=== PATIENT | female | born 1940 | race Caucasian/White ===

== ENCOUNTER 2018-03-11 18:33 | Emergency (ER) | payer MEDICARE, BC, SELFPAY ==
[2018-03-11 18:49] VITALS: BP 159/114; PULSE 65; RESP 20; TEMP 36.1; O2SAT 95; BMI 25.4
--- NOTE | 2018-03-11 18:50 | ED.SYNCOPE ---
HPI - Syncope General Chief Complaint: Syncope Stated Complaint: having blackouts, passing out Time Seen by Provider: 03/11/18 18:50 Source: patient Mode of arrival: ambulatory Limitations: no limitations History of Present Illness HPI narrative: The patient has experienced 2 episodes of syncope while at rest at home today. The 1st episode was at noon, and a repeat episode occurred prior to arrival. She has had approximately 10 episodes of syncope in the past month. Her describes situations where she does collapse a pass out for 2-3 seconds, she also has experienced episodes where she riley out . She almost passes out goes to the floor and recovers. She has no associated chest pain. She has no confusion or neurologic deficit. She has not experienced palpitations. She underwent CABG 1 year ago while in [place]. The family travels back and forth between this area and there is on a. She has never had arrhythmia, she has never experienced syncope before the past month. She was seen by local doctor did an EKG, the results are unknown. There been attempts to arrange a cardiology appointment. At the cardiology appointment is still weeks away. She feels well currently, she does not feel weakness or dizziness. She is ambulatory without assistance. She is taking oxycodone for rather severe back pain. Her last dose was 4 hr ago. She does not feel she is having adverse effect with the oxycodone. Related Data Home Medications Medication Instructions Recorded Confirmed albuterol sulfate 2.5 mg INHALATION Q4H PRN 03/11/18 03/11/18 aspirin 81 mg PO DAILY 03/11/18 03/11/18 carvedilol 6.25 mg PO BID 03/11/18 03/11/18 cetirizine [Zyrtec] 10 mg PO DAILY 03/11/18 03/11/18 citalopram 40 mg PO DAILY 03/11/18 03/11/18 fluticasone [Flonase Allergy 2 spray INTRANASAL DAILY 03/11/18 03/11/18 Relief] hydrochlorothiazide 12.5 mg PO DAILY 03/11/18 03/11/18 rosuvastatin 20 mg PO DAILY 03/11/18 03/11/18 thyroid (pork) [GROUND SUPPORT EQUIPMENT FITTER Thyroid] 90 mg PO DAILY 03/11/18 03/11/18 Allergies Allergy/AdvReac Type Severity Reaction Status Date / Time Sulfa (Sulfonamide Allergy Verified 03/11/18 18:56 Antibiotics) Review of Systems Review of Systems ROS Unobtainable: All systems reviewed & are unremarkable except as noted in HPI and below Constitutional Denies chills, Denies fever(s), Denies headache(s), Denies lethargy and Denies weakness Eyes Denies change in vision, Denies eye discharge, Denies irritation and Denies loss of vision ENT Ears, Nose, Mouth, and Throat: Denies headache(s), Denies hearing loss, Denies neck pain, Denies disequilibrium and Denies sinus pain Cardiovascular Denies chest pain, Denies irregular heart rhythm, Denies lightheadedness, Denies palpitations, Denies dyspnea, Denies dyspnea on exertion and Denies orthopnea Respiratory Denies cough, Denies dyspnea, Denies dyspnea on exertion and Denies wheezing Gastrointestinal Gastrointestinal: Denies abdominal pain, Denies change in bowel habits, Denies diarrhea, Denies nausea and Denies vomiting Musculoskeletal Denies neck pain Integumentary/Breasts Denies pruritus, Denies erythema, Denies rash and Denies wounds Neurologic Denies confusion, Denies headache(s), Denies loss of vision, Denies disequilibrium and Denies weakness Psychiatric Denies anxiety, Denies confusion, Denies depression, Denies homicidal ideation and Denies suicidal ideation Endocrine Denies palpitations Allergic/Immunologic Denies wheezing PFSH Medical History Back pain (Acute) CAD, multiple vessel (Acute) Surgical History Hx of CABG (Acute) Social History additional social history: No significant social history. She and her spend half the year locally, and half the year in [place]. Exam Initial Vital Signs Initial Vital Signs: Vital Signs Temperature 97 F L 03/11/18 18:49 Pulse Rate 65 03/11/18 18:49 Respiratory Rate 20 03/11/18 18:49 Blood Pressure 159/114 H 03/11/18 18:49 Pulse Oximetry 95 03/11/18 18:49 Const General: cooperative and well developed Nutritional Appearance: well nourished Orientation: alert, awake, oriented x3 and not confused [facility] Head: normocephalic and atraumatic Ears: external ears normal and TM's normal bilaterally Nose: external nose normal and No nasal discharge Face and sinus: sinuses nontender, face symmetric, no sinus tenderness and No dry mucous membranes Mouth: oral mucosae normal and moist mucous membranes Teeth and gingiva: dentition normal Throat: tonsils normal and uvula midline Eyes General: appearance normal, both eyes and all related structures Eyelids: eyelids normal Conjunctivae: conjunctivae normal Sclera: sclerae normal Pupils: PERRL EOM: EOM intact bilaterally Neck Neck: No JVD Chest Chest: normal inspection of the chest Resp Effort & Inspection: normal respiratory effort, able to speak in complete sentences, no respiratory distress and no use of accessory muscles Auscultation: clear to auscultation bilaterally, no rales, no rhonchi and no wheezes Cardio Rate: regular rate Rhythm: regular rhythm Heart Sounds: no click, no gallops, no murmurs and no rubs Pulses: normal peripheral pulses GI Inspection: non-distended Palpation: soft, no hepatosplenomegaly, No guarding, No pulsatile mass and No tender Auscultation: normal bowel sounds Back/Spine/Pelvis Back: back tenderness (Moderate in the lumbar spine.) Skin General: no rashes or lesions noted, No jaundice and No petechiae Neuro General: alert, oriented x3, gait normal and no focal motor deficits Speech: speech normal Extrem General: no pedal edema Psych Appearance: well kempt Mental Status: mental status grossly normal Attitude: cooperative Thought Content: normal and suicidality Judgment: judgment good Course Orders Ordered: ED Orders 03/11/18 18:47 EKG-12 Lead Stat 03/11/18 18:58 XR chest 1V Stat 03/11/18 19:05 Complete Blood Count AUTO DIFF Stat Comprehensive Metabolic Panel Stat Magnesium Stat Prothrombin Time INR Stat Troponin & CK Cardiac Panel Stat Discontinued Medications Morphine Sulfate (Morphine) 4 mg SUBCUT NOW ONE Stop: 03/11/18 20:27 Last Admin: 03/11/18 20:38 Dose: 4 mg Potassium Chloride (Potassium Chloride) 40 meq PO NOW ONE Stop: 03/11/18 20:09 Last Admin: 03/11/18 20:15 Dose: 40 meq Vital Signs - 8 hr 03/11/18 18:49 03/11/18 20:00 03/11/18 20:47 Temperature 97 F L 98.1 F Pulse Rate 65 65 62 Respiratory Rate 20 18 20 Blood Pressure 159/114 H Blood Pressure [Left Arm] 181/73 H 196/67 H Pulse Oximetry 95 99 100 03/11/18 21:26 Temperature Pulse Rate 66 Respiratory Rate 20 Blood Pressure 170/74 H Blood Pressure [Left Arm] Pulse Oximetry 99 MDM - Syncope Lab Data Result diagrams: 03/11/18 19:05 03/11/18 19:05 Lab Results 03/11/18 03/11/18 03/11/18 Range/Units 19:05 19:05 19:05 WBC 6.5 (4.5-11.0) X10^3/uL RBC 4.08 (4.0-5.2) X10^6/uL Hgb 13.2 (12.0-16.0) g/dL Hct 39.0 (36-46) % MCV 95.5 (80-100) fL MCH 32.2 (26-34) PG MCHC 33.7 (30-36) % RDW 13.1 (11.6-14.8) % Plt Count 247 (150-400) X10^3/uL Neut % (Auto) 65.7 (50-75) % Lymph % (Auto) 18.4 L (25-40) % Morgan % (Auto) 11.6 (3-14) % Eos % (Auto) 3.5 (2-4) % Baso % (Auto) 0.8 (0-2) % Neut # (Auto) 4300 (5414-7760) /uL Lymph # (Auto) 1200 (2941-8648) /uL Morgan # (Auto) 800 (0-900) /uL Eos # (Auto) 200 (0-450) /uL Baso # (Auto) 100 (0-100) /uL PT 11.1 (10.1-12.7) SECONDS INR 1.0 (0.9-1.3) Sodium 136 L (137-145) mmol/L Potassium 3.0 L (3.4-5.1) mmol/L Chloride 98 (98-107) mmol/L Carbon Dioxide 27 (22-32) mmol/L BUN 13 (7-17) mg/dL Creatinine 0.60 (0.52-1.04) mg/dL Estimated GFR > 60.0 (>60) mL/min BUN/Creatinine Ratio 21.7 (6-22) Glucose 97 (80-110) mg/dL Calcium 9.6 (8.4-10.2) mg/dL Magnesium 2.2 (1.6-2.3) mg/dL Total Bilirubin 0.3 (0.2-1.3) mg/dL AST 28 (14-36) IU/L ALT 28 (9-52) IU/L Alkaline Phosphatase 112 (38-126) U/L Total Creatine Kinase 64 (30-135) U/L CK-MB (CK-2) TNP CK-MB (CK-2) Rel Index TNP Troponin I < 0.012 (0.01-0.034) ng/mL Total Protein 8.0 (6.3-8.2) g/dL Albumin 4.6 (3.5-5.0) g/dL Globulin 3.4 (1.7-4.1) g/dL Albumin/Globulin Ratio 1.4 (1.0-2.8) Point of Care Testing Glucose POC 104 Imaging Data Chest x-ray: Radiologist's impression: [place] [address] XRay Report Signed Patient: Ottoniel Couch MMR#: [id number] : 3Acct:[id number] Age/Sex: 77 / FDate of Service: 03/11/18 Loc: ED Accession Number: [id number] Procedure: XR chest 1V Ordering Provider: Tello Sandoval M.D. PROCEDURE: XR CHEST 1V INDICATIONS: Recurrent syncope TECHNIQUE: One view of the chest was acquired. COMPARISON: None. FINDINGS: Surgical changes and devices: Sternotomy and CABG. Lungs and pleura: Lungs are clear. No pleural effusions or pneumothorax. Mediastinum: Mediastinal contours appear normal. Heart size is normal. Bones and chest wall: No suspicious bony lesions. Overlying soft tissues appear unremarkable. IMPRESSION: No acute cardiopulmonary disease. Dictated by: German Guevara M.D. on 03/11/2018 at 19:46 Approved by: German Guevara M.D. on 03/11/2018 at 19:51 ECG Data Attestation: I personally reviewed and interpreted this ECG as follows: (Normal sinus rhythm rate 61 bpm. RBBB. Old inferior Q-waves. No acute ST T wave elevation. No acute findings.) MDM Narrative Medical decision making narrative: The patient has not felt near syncope or syncope episodes since arrival to the ER. Monitor reveals no evidence of arrhythmia. She does have a potassium level 3.0 which has been treated, magnesium level is normal. I discussed the case with Dr. Garcia with [facility]. We have made arrangements for her to be seen by one of the nurses in that group with the plan to have a 30 day monitor started tomorrow. The follow-up plan is described in her discharge instructions. She is requested to return here if symptoms escalate. Discharge Plan Departure Patient Disposition: Home Clinical Impression: Syncope Discharge Date/Time: 03/11/18 21:27 Interventions: ED Discharge Assessment Last Done: 03/11/18 21:26 Instructions: DI for Syncope in Adults (Fainting) Activity Restrictions/Additional Instructions: Contact [facility] after 8:00 a.m. tomorrow morning, . Ask to speak with Lesli locally here in [place] at their cardiology office. I talked with 1 of their supervisor engine assembly, Dr. Garcia. The plan would be to have Lesli place you on a 30 day cardiology monitor. If you have repeat cases of passing out prior to the cardiology workup return to the ER. Prescriptions: No Action carvedilol 6.25 mg Tablet 6.25 mg PO BID RF: 0 citalopram 40 mg Tablet 40 mg PO DAILY RF: 0 cetirizine [Zyrtec] 10 mg Tablet 10 mg PO DAILY RF: 0 aspirin 81 mg Tablet,Chewable 81 mg PO DAILY RF: 0 hydrochlorothiazide 25 mg Tablet 12.5 mg PO DAILY RF: 0 albuterol sulfate 5 mg/mL Solution For Nebulization 2.5 mg INHALATION Q4H PRN (Reason: Dyspnea) RF: 0 fluticasone [Flonase Allergy Relief] 50 mcg/actuation [place],Suspension 2 spray INTRANASAL DAILY RF: 0 rosuvastatin 20 mg Tablet 20 mg PO DAILY RF: 0 thyroid (pork) [GROUND SUPPORT EQUIPMENT FITTER Thyroid] 90 mg Tablet 90 mg PO DAILY RF: 0 Referrals: Felix Garcia MD [Non-Staff] -
--- NOTE | 2018-03-11 18:58 | DI.RAD.S_ITS ---
PROCEDURE: XR CHEST 1V INDICATIONS: Recurrent syncope TECHNIQUE: One view of the chest was acquired. COMPARISON: None. FINDINGS: Surgical changes and devices: Sternotomy and CABG. Lungs and pleura: Lungs are clear. No pleural effusions or pneumothorax. Mediastinum: Mediastinal contours appear normal. Heart size is normal. Bones and chest wall: No suspicious bony lesions. Overlying soft tissues appear unremarkable. IMPRESSION: No acute cardiopulmonary disease. Dictated by: German Guevara M.D. on 03/11/2018 at 19:46 Approved by: German Guevara M.D. on 03/11/2018 at 19:51
--- NOTE | 2018-03-11 19:14 | PC.NURSE ---
pt reports, multiple episode of yeager out recent today at 4pm, loc for couple of seconds. then pt reports having back spasm.
[2018-03-11 19:16] LABS: Add Manual Diff / Slide Review NO; Basophils Absolute Auto 100 /uL (0-100); Basophils Percent Auto 0.8 % (0-2); Eosinophils Absolute Auto 200 /uL (0-450); Eosinophils Percent Auto 3.5 % (2-4); Hemoglobin 13.2 g/dL (12.0-16.0); Lymphocytes Absolute Auto 1200 /uL (1100-4500); Lymphocytes Percent Auto 18.4 % (25-40); Mean Corpuscular HGB Conc 33.7 % (30-36); Mean Corpuscular Hemoglobin 32.2 PG (26-34); Mean Corpuscular Volume 95.5 fL (80-100); Monocytes Absolute Auto 800 /uL (0-900); Monocytes Percent Auto 11.6 % (3-14); Neutrophils Absolute Auto 4300 /uL (1500-7000); Neutrophils Percent Auto 65.7 % (50-75); Platelet Count 247 X10^3/uL (150-400); Red Blood Cell Count 4.08 X10^6/uL (4.0-5.2); Red Cell Distribution Width 13.1 % (11.6-14.8); White Blood Cell Count 6.5 X10^3/uL (4.5-11.0)
[2018-03-11 19:23] LABS: Prothrombin Time 11.1 SECONDS (10.1-12.7)
[2018-03-11 19:28] LABS: Alanine Aminotransferase 28 IU/L (9-52); Albumin 4.6 g/dL (3.5-5.0); Albumin Globulin Ratio 1.4 (1.0-2.8); Alkaline Phosphatase 112 U/L (38-126); Aspartate Aminotransferase 28 IU/L (14-36); BUN Creatinine Ratio 21.7 (6-22); Bilirubin Total 0.3 mg/dL (0.2-1.3); Blood Urea Nitrogen 13 mg/dL (7-17); Calcium 9.6 mg/dL (8.4-10.2); Carbon Dioxide 27 mmol/L (22-32); Chloride 98 mmol/L (98-107); Creatine Kinase 64 U/L (30-135); Estimated Glomerular Filt Rate > 60.0 mL/min (>60); Globulin 3.4 g/dL (1.7-4.1); Glucose 97 mg/dL (80-110); HEMOLYSIS < 15 (0-50); Magnesium 2.2 mg/dL (1.6-2.3); Sodium 136 mmol/L (137-145)
[2018-03-11 19:42] LABS: Troponin I < 0.012 ng/mL (0.01-0.034)
[2018-03-11 20:00] VITALS: BP 181/73; PULSE 65; RESP 18; O2SAT 99
[2018-03-11] MEDS: POTASSIUM CHLORIDE 20 MEQ/15 ML UDC 40 MEQ PO (20:15)
[2018-03-11] MEDS: MORPHINE 4 MG/ML INJ SUBCUT (20:38)
[2018-03-11 20:47] VITALS: BP 196/67; PULSE 62; RESP 20; TEMP 36.7; O2SAT 100
[2018-03-11 21:26] VITALS: BP 170/74; PULSE 66; RESP 20; O2SAT 99
== END 2018-03-11 21:27 | disposition home or self-care (01) ==
PROVIDERS: Emergency Provider Emergency Medicine
DX: R55 Syncope and collapse (principal)
CPT/HCPCS: 36591; 71045; 80053; 82550; 82962; 83735; 84484; 85025; 85610; 93005; 96372; 99283; 99285; J2270

== ENCOUNTER 2018-07-03 17:06 | Emergency (ER) | payer MEDICARE, BC, SELFPAY ==
[2018-07-03 17:08] VITALS: BP 129/74; PULSE 83; RESP 16; TEMP 36.8; O2SAT 98
--- NOTE | 2018-07-03 17:52 | DI.RAD.S_ITS ---
PROCEDURE: XR CHEST 1V INDICATIONS: chest pain TECHNIQUE: One view of the chest was acquired. COMPARISON: [facility], CR, XR CHEST 1V, 03/11/2018, 19:02. FINDINGS: Surgical changes and devices: The postoperative changes including sternotomy wires are stable over time Lungs and pleura: Lungs are clear. No pleural effusions or pneumothorax. Mediastinum: Mediastinal contours appear normal. Heart size is normal. Bones and chest wall: No suspicious bony lesions. Overlying soft tissues appear unremarkable. IMPRESSION: Stable postsurgical changes, no source of new chest pain is found. Dictated by: Remington Angelo M.D. on 07/03/2018 at 18:42 Approved by: Remington Angelo M.D. on 07/03/2018 at 18:42
--- NOTE | 2018-07-03 17:57 | PC.NURSE ---
pt reporting light headness for one week worsen with exertion. has been wearing cardiac rehab nurse, has appt with copper miner tomorrow, but pt with near syncope today, reports she was pale, no diaphoresis or vomiting, denies chest pain. checked bp 100's, unable to check heart rate. family at bs.
[2018-07-03 18:07] LABS: INR 0.9 (0.9-1.3); Prothrombin Time 10.6 SECONDS (10.1-12.7)
[2018-07-03 18:09] LABS: PTT Partial Thromboplastin Tim 33 SECONDS (26.4-36.2)
[2018-07-03 18:11] LABS: Alanine Aminotransferase 26 IU/L (9-52); Albumin 4.9 g/dL (3.5-5.0); Albumin Globulin Ratio 1.5 (1.0-2.8); Alkaline Phosphatase 106 U/L (38-126); Aspartate Aminotransferase 37 IU/L (14-36); BUN Creatinine Ratio 18.6 (6-22); Bilirubin Total 0.5 mg/dL (0.2-1.3); Blood Urea Nitrogen 13 mg/dL (7-17); Calcium 9.9 mg/dL (8.4-10.2); Carbon Dioxide 21 mmol/L (22-32); Chloride 102 mmol/L (98-107); Creatine Kinase 51 U/L (30-135); Estimated Glomerular Filt Rate > 60.0 mL/min (>60); Globulin 3.2 g/dL (1.7-4.1); Glucose 83 mg/dL (80-110); HEMOLYSIS 31 (0-50); Lipase 193 U/L (23-300); Sodium 136 mmol/L (137-145); Total Protein 8.1 g/dL (6.3-8.2)
--- NOTE | 2018-07-03 18:12 | ED_ITS ---
HPI - Syncope General Chief Complaint: Syncope Stated Complaint: LIGHTHEADDED Time Seen by Provider: 07/03/18 18:12 Source: patient Mode of arrival: ambulatory Limitations: no limitations History of Present Illness HPI narrative: 78-year-old female here for evaluation of an episode where she was sitting at her desk at home today. She states that she suddenly had an episode where she got tunnel vision almost passed out. She states she did not pass out however. No other associated symptoms to include headache or ringing in her ears or chest pain or shortness of breath or palpitations. She states that she has had episodes like this off and on for some time now. She stated that she recently just finished a 30 day Holter monitor and has an appointment tomorrow with the ?pacemaker ?button facing machine operator. Denies any fevers. The time my evaluation patient had no symptoms. No recent change in her medications. Related Data Home Medications Medication Instructions Recorded Confirmed albuterol sulfate 1 puff INHALATION Q4H PRN 03/11/18 07/03/18 aspirin 81 mg PO DAILY 03/11/18 07/03/18 cetirizine [Zyrtec] 10 mg PO QPM 03/11/18 07/03/18 citalopram 60 mg PO DAILY 03/11/18 07/03/18 fluticasone propionate [Flonase 2 spray INTRANASAL DAILY 03/11/18 07/03/18 Allergy Relief] rosuvastatin 20 mg PO DAILY 03/11/18 07/03/18 thyroid (pork) [FREIGHT HUSTLER Thyroid] 90 mg PO DAILY 03/11/18 07/03/18 Probiotic 1 cap PO DAILY 07/03/18 07/03/18 amlodipine 10 mg PO DAILY 07/03/18 07/03/18 ascorbic acid (vitamin C) 1,000 mg PO DAILY 07/03/18 07/03/18 calcium polycarbophil [Fiber-Tabs] 1,250 mg PO DAILY 07/03/18 07/03/18 cholecalciferol (vitamin D3) 5,000 unit PO DAILY 07/03/18 07/03/18 [Vitamin D3] coenzyme Q10 [Co Q-10] 100 mg PO DAILY 07/03/18 07/03/18 ferrous sulfate 325 mg PO DAILY 07/03/18 07/03/18 lisinopril 10 mg PO BID 07/03/18 07/03/18 magnesium citrate 300 mg PO DAILY 07/03/18 07/03/18 multivitamin 1 tab PO DAILY 07/03/18 07/03/18 potassium chloride 20 meq PO DAILY 07/03/18 07/03/18 vitamin K2 100 mcg PO DAILY 07/03/18 07/03/18 Allergies Allergy/AdvReac Type Severity Reaction Status Date / Time Sulfa (Sulfonamide Allergy Verified 03/11/18 18:56 Antibiotics) Review of Systems Constitutional Denies chills, Denies fever(s), Denies frequent falls, Denies headache(s), Denies lethargy and Denies weakness Eyes Reports loss of vision ENT Ears, Nose, Mouth, and Throat: Denies vertigo, Reports dizziness, Denies headache(s) and Reports disequilibrium Cardiovascular Denies chest pain, Denies diaphoresis, Denies syncope, Denies rapid heart rate, Denies pedal edema, Denies edema, Denies irregular heart rhythm, Reports lightheadedness, Denies radiating jaw, neck or arm pain, Denies palpitations, Reports dyspnea and Denies slow heart rate Respiratory Denies cough, Reports dyspnea and Denies wheezing Gastrointestinal Gastrointestinal: Denies abdominal pain, Denies nausea and Denies vomiting Genitourinary Denies dysuria Musculoskeletal Denies abnormal gait, Denies myalgias, Denies arthralgias, Denies numbness and Denies tingling Integumentary/Breasts Denies rash Neurologic Denies abnormal speech, Denies abnormal gait, Denies behavioral changes, Denies confusion, Denies vertigo, Reports dizziness, Denies syncope, Denies frequent falls, Denies headache(s), Denies lack of coordination, Denies focal weakness, Reports loss of vision, Denies memory loss, Denies numbness, Denies seizure-like activity, Denies tingling, Denies paresthesias, Reports disequilibrium and Denies weakness Psychiatric Denies behavioral changes, Denies confusion and Denies memory loss Endocrine Denies palpitations Hematologic/Lymphatic Denies easy bleeding and Denies easy bruising Allergic/Immunologic Denies wheezing [facility] Medical History Back pain (Acute) CAD, multiple vessel (Acute) Surgical History (Updated 03/11/18 @ 19:39 by Tello Sandoval MD) Hx of CABG (Acute) Social History Smoking Status: Former smoker additional social history: No significant social history. She and her spend half the year locally, and half the year in [place]. Social History Smoking Status: Former smoker additional social history: No significant social history. She and her spend half the year locally, and half the year in [place]. Exam Initial Vital Signs Initial Vital Signs: Vital Signs Temperature 98.3 F 07/03/18 17:08 Pulse Rate 83 07/03/18 17:08 Respiratory Rate 16 07/03/18 17:08 Blood Pressure 129/74 07/03/18 17:08 Pulse Oximetry 98 07/03/18 17:08 Const General: cooperative, comfortable, well developed, well groomed and No acute distress Orientation: alert, awake and oriented x3 HENMT Head: normal to inspection and normocephalic Resp Effort & Inspection: normal respiratory effort Auscultation: clear to auscultation bilaterally Cardio Rate: regular rate Rhythm: regular rhythm Pulses: radial pulses present GI Inspection: non-distended Palpation: soft, No firm and No tender Skin Lesions: no lesions Rashes: no rashes Neuro General: alert and awake Cognition: normal cognition Speech: speech normal Motor: muscle tone normal throughout Sensory Exam: no sensory deficits noted Extrem General: normal to inspection and capillary refill normal Psych Appearance: grossly normal and well kempt Scores GCS Bridget coma scale eye opening: Spontaneous Bridget coma scale verbal response: Orientated Bridget coma scale motor response: Obey commands Bridget coma scale total score: 15 Course Orders Ordered: ED Orders 07/03/18 17:17 EKG-12 Lead Stat 07/03/18 17:52 XR chest 1V Stat 07/03/18 18:02 Complete Blood Count AUTO DIFF Stat Comprehensive Metabolic Panel Stat Lipase Stat Partial Thromboplastin Time Stat Prothrombin Time INR Stat Troponin & CK Cardiac Panel Stat Vital Signs - 8 hr 07/03/18 17:08 07/03/18 18:32 07/03/18 19:00 Temperature 98.3 F Pulse Rate 83 80 78 Respiratory Rate 16 15 20 Blood Pressure 129/74 Blood Pressure [Left Arm] 128/58 L 120/52 L Pulse Oximetry 98 98 99 MDM - Syncope Lab Data Attestation: I reviewed the patient's lab results. Result diagrams: 07/03/18 18:02 07/03/18 18:02 Lab Results 07/03/18 07/03/18 07/03/18 Range/Units 18:02 18:02 18:02 WBC 6.1 (4.5-11.0) X10^3/uL RBC 4.26 (4.0-5.2) X10^6/uL Hgb 13.9 (12.0-16.0) g/dL Hct 41.7 (36-46) % MCV 97.8 (80-100) fL MCH 32.5 (26-34) PG MCHC 33.2 (30-36) % RDW 13.1 (11.6-14.8) % Plt Count 237 (150-400) X10^3/uL Neut % (Auto) 64.2 (50-75) % Lymph % (Auto) 25.0 (25-40) % [place] % (Auto) 7.9 (3-14) % Eos % (Auto) 1.7 L (2-4) % Baso % (Auto) 1.2 (0-2) % Neut # (Auto) 3900 (7779-9433) /uL Lymph # (Auto) 1500 (6885-1671) /uL [place] # (Auto) 500 (0-900) /uL Eos # (Auto) 100 (0-450) /uL Baso # (Auto) 100 (0-100) /uL PT 10.6 (10.1-12.7) SECONDS INR 0.9 (0.9-1.3) APTT 33 (26.4-36.2) SECONDS Sodium 136 L (137-145) mmol/L Potassium 4.0 (3.4-5.1) mmol/L Chloride 102 (98-107) mmol/L Carbon Dioxide 21 L (22-32) mmol/L BUN 13 (7-17) mg/dL Creatinine 0.70 (0.52-1.04) mg/dL Estimated GFR > 60.0 (>60) mL/min BUN/Creatinine Ratio 18.6 (6-22) Glucose 83 (80-110) mg/dL Calcium 9.9 (8.4-10.2) mg/dL Total Bilirubin 0.5 (0.2-1.3) mg/dL AST 37 H (14-36) IU/L ALT 26 (9-52) IU/L Alkaline Phosphatase 106 (38-126) U/L Total Creatine Kinase 51 (30-135) U/L CK-MB (CK-2) TNP CK-MB (CK-2) Rel Index TNP Troponin I < 0.012 (0.01-0.034) ng/mL Total Protein 8.1 (6.3-8.2) g/dL Albumin 4.9 (3.5-5.0) g/dL Globulin 3.2 (1.7-4.1) g/dL Albumin/Globulin Ratio 1.5 (1.0-2.8) Lipase 193 (23-300) U/L Imaging Data Chest x-ray: Radiologist's impression: [address] [address] XRay Report Signed Patient: Ottoniel Couch MMR#: [id number] : 3Acct:[id number] Age/Sex: 78 / FDate of Service: 07/03/18 Loc: ED Accession Number: [id number] Procedure: XR chest 1V Ordering Provider: Moses Zhou D.O. PROCEDURE: XR CHEST 1V INDICATIONS: chest pain TECHNIQUE: One view of the chest was acquired. COMPARISON: [facility], , XR CHEST 1V, 03/11/2018, 19:02. FINDINGS: Surgical changes and devices: The postoperative changes including sternotomy wires are stable over time Lungs and pleura: Lungs are clear. No pleural effusions or pneumothorax. Mediastinum: Mediastinal contours appear normal. Heart size is normal. Bones and chest wall: No suspicious bony lesions. Overlying soft tissues appear unremarkable. IMPRESSION: Stable postsurgical changes, no source of new chest pain is found. Dictated by: Remington Angelo M.D. on 07/03/2018 at 18:42 Approved by: Remington Angelo M.D. on 07/03/2018 at 18:42 ECG Data Attestation: I personally reviewed and interpreted this ECG as follows: Prior ECG tracings: not available for review Interpretation: Sinus rhythm Ventricular rate is 78 Left axis deviation QRS 161 milliseconds Normal IN interval Normal QTC MDM Narrative Medical decision making narrative: Patient is asymptomatic upon arrival today. She states she does not know the results of the 30 day Holter monitor that she finished however she does state that she has an appointment tomorrow with the ?pacemaker ?button facing machine operator. She is unsure if this is because her button facing machine operator who ordered the Holter monitor thinks she needs a pacemaker not. I have low suspicion for TIA or CVA given her symptoms. I do suspect that her symptoms are cardiac related. She does have a fit bit on and review of the heart rate shows rates between 60 and 120. She does not know what her heart rate was at the time when she had the symptoms. Blood pressure is unremarkable. Will hold on further workup for now. Will have the patient follow up with her button facing machine operator tomorrow as scheduled. She was given return precautions. Her family is at bedside for these discussions. They all expressed understanding and agreement plan. Discharge Plan Departure Patient Disposition: Home Clinical Impression: Pre-syncope Discharge Date/Time: 07/03/18 19:35 Interventions: ED Discharge Assessment Last Done: 07/03/18 19:35 Instructions: DI for Syncope in Adults (Fainting) Activity Restrictions/Additional Instructions: I recommend that you keep your appointment with the heart doctor tomorrow. Continue all of your medications as directed. Return to the emergency departme for any new or worsening symptoms. No driving until cleared by your primary or by Cardiology Prescriptions: No Action citalopram 40 mg Tablet 60 mg PO DAILY RF: 0 cetirizine [Zyrtec] 10 mg Tablet 10 mg PO QPM RF: 0 aspirin 81 mg Tablet,Chewable 81 mg PO DAILY RF: 0 albuterol sulfate 5 mg/mL Solution For Nebulization 1 puff INHALATION Q4H PRN (Reason: Dyspnea) RF: 0 fluticasone propionate [Flonase Allergy Relief] 50 mcg/actuation [place],Suspension 2 spray INTRANASAL DAILY RF: 0 rosuvastatin 20 mg Tablet 20 mg PO DAILY RF: 0 thyroid (pork) [FREIGHT HUSTLER Thyroid] 90 mg Tablet 90 mg PO DAILY RF: 0 amlodipine 5 mg tablet 10 mg PO DAILY RF: 0 lisinopril 10 mg tablet 10 mg PO BID RF: 0 potassium chloride 20 mEq Tablet Extended Release 20 meq PO DAILY RF: 0 multivitamin Tablet 1 tab PO DAILY RF: 0 ascorbic acid (vitamin C) 1,000 mg Tablet 1,000 mg PO DAILY RF: 0 ferrous sulfate 325 mg (65 mg iron) Tablet 325 mg PO DAILY RF: 0 calcium polycarbophil [Fiber-Tabs] 625 mg Tablet 1,250 mg PO DAILY RF: 0 coenzyme Q10 [Co Q-10] 100 mg Capsule 100 mg PO DAILY RF: 0 cholecalciferol (vitamin D3) [Vitamin D3] 5,000 unit Tablet 5,000 unit PO DAILY RF: 0 Probiotic 1 cap PO DAILY RF: 0 magnesium citrate 300 mg 300 mg PO DAILY RF: 0 vitamin K2 100 mcg tablet 100 mcg PO DAILY RF: 0
[2018-07-03 18:13] LABS: Add Manual Diff / Slide Review NO; Basophils Absolute Auto 100 /uL (0-100); Basophils Percent Auto 1.2 % (0-2); Eosinophils Absolute Auto 100 /uL (0-450); Eosinophils Percent Auto 1.7 % (2-4); Hematocrit 41.7 % (36-46); Hemoglobin 13.9 g/dL (12.0-16.0); Lymphocytes Absolute Auto 1500 /uL (1100-4500); Mean Corpuscular HGB Conc 33.2 % (30-36); Mean Corpuscular Hemoglobin 32.5 PG (26-34); Mean Corpuscular Volume 97.8 fL (80-100); Monocytes Absolute Auto 500 /uL (0-900); Monocytes Percent Auto 7.9 % (3-14); Neutrophils Absolute Auto 3900 /uL (1500-7000); Neutrophils Percent Auto 64.2 % (50-75); Platelet Count 237 X10^3/uL (150-400); Red Blood Cell Count 4.26 X10^6/uL (4.0-5.2); Red Cell Distribution Width 13.1 % (11.6-14.8); White Blood Cell Count 6.1 X10^3/uL (4.5-11.0)
[2018-07-03 18:22] LABS: Troponin I < 0.012 ng/mL (0.01-0.034)
[2018-07-03 18:32] VITALS: BP 128/58; PULSE 80; RESP 15; O2SAT 98
[2018-07-03 19:00] VITALS: BP 120/52; PULSE 78; RESP 20; O2SAT 99
== END 2018-07-03 19:35 | disposition home or self-care (01) ==
PROVIDERS: Emergency Provider Emergency Medicine
DX: R55 Syncope and collapse (principal); R06.02 Shortness of breath
CPT/HCPCS: 36591; 71045; 80053; 82550; 83690; 84484; 85025; 85610; 85730; 93005; 93010; 99283; 99285

== ENCOUNTER → 2019-08-27 09:40 | Outpatient (CLI) | payer MEDICARE, BC, SELFPAY ==
--- NOTE | 2019-08-27 | DI.US.S_ITS ---
PROCEDURE: US ABDOMEN LIMITED INDICATIONS: VENTRAL HERNIA WITHOUT OBSTRUCTION OR GANGRENE TECHNIQUE: Real-time focused scanning was performed of the abdomen, with image documentation. COMPARISON: None. FINDINGS: Scanning is performed at the area of clinical concern involving the left supraumbilical/epigastric region. No findings of hernia can be seen, including with scanning supine, sitting, standing, and with bending over. IMPRESSION: Negative for hernia. Dictated by: Johnathan Elmore M.D. on 08/27/2019 at 14:08 Approved by: Johnathan Elmore M.D. on 08/27/2019 at 14:09
== END ==
PROVIDERS: PCP Family Medicine; Referring Provider Family Medicine; Visit Provider Family Medicine
DX: K43.9 Ventral hernia without obstruction or gangrene (principal)
CPT/HCPCS: 76705